=== PATIENT | female | born 1995 | race Caucasian/White ===

== ENCOUNTER 2018-01-03 21:20 | Emergency (ER) | payer OTHER ==
[~2018-01-03] VITALS: Ht 165.1 cm; Wt 64.9 kg
[2018-01-03 21:41] LABS: BILIRUBIN,URINE NEGATIVE (NEGATIVE); COLOR,URINE YELLOW (YELLOW); KETONES,URINE NEGATIVE (NEGATIVE); LEUKOCYTE ESTERASE ,URINE NEGATIVE (NEGATIVE); NITRITE,URINE NEGATIVE (NEGATIVE); PROTEIN,URINE DIPSTICK NEGATIVE (NEGATIVE); URINE UROBILINOGEN 0.2 mg/dL (0.2 - 1)
[2018-01-03 21:42] LABS: CLARITY,URINE SL CLOUDY (CLEAR); PREGNANCY TEST, URINE NEGATIVE (NEGATIVE)
[2018-01-03 21:54] LABS: EPITHELIAL CELLS,URINE FEW /LPF; RBC,URINE 0-5 /HPF (0-5)
--- NOTE | 2018-01-03 23:01 | Diagnostic Imaging Report ---
EXAM: ABDOMEN ACUTE SERIES W/PA CXR, frontal view of the chest and supine and erect views of the abdomen INDICATION: Constipation, no bowel movement in 6 days. COMPARISON: None FINDINGS: LINES/TUBES: None BOWEL PATTERN: No evidence for obstruction. SOFT TISSUES: No abnormal calcifications. No mass effect. CHEST: Normal BONES: No acute findings. IMPRESSION: Normal chest x-ray. Moderate amount of retained stool predominantly in the right colon. No bowel obstruction. Signed by: Dr. Zoya French M.D. on 01/03/2018 10:58 PM
[2018-01-03 23:16] VITALS: BP 124/76
== END 2018-01-03 23:23 | disposition home or self-care (01) ==
LOC: ER 21:20
DX: R10.30 Lower abdominal pain, unspecified (principal); K59.00 Constipation, unspecified
CPT/HCPCS: 74022; 81001; 81025; 99283